=== PATIENT | female | born 1965 | race Caucasian/White ===

== ENCOUNTER 2017-07-27 14:10 | Emergency (ER) | END 2017-07-27 17:45 | disposition home or self-care (01) | DX: R51 Headache (principal); M26.621 Arthralgia of right temporomandibular joint | CPT/HCPCS: 70450; Z7502 ==

== ENCOUNTER 2017-08-27 21:59 | Emergency (ER) | payer OTHER ==
[~2017-08-27] VITALS: Ht 160 cm; Wt 56.5 kg
[~2017-08-27 21:59] MED LIST: ASPI325T32 PO; ATOR40TA68 PO; IBUP400T22 PO; LISI-523 PO
[2017-08-27 22:14] VITALS: Ht 160 cm; Wt 56.5 kg
--- NOTE | 2017-08-28 00:08 | ERD ---
ER Documentation Chief Complaint Chief Complaint she tripped and fell, lac on left side of head, dizziness. HPI The patient is a 52-year-old female, presenting to the ER because of a mechanical fall around 9:30 PM, sustained a small left parietal laceration. She complains of dizziness, head pain, denies goopy, near syncope, neck pain, chest pain, abdominal pain. He does not smoke nor drink Past medical history: Hypertension, dyslipidemia past Surgical history: 2 ROS All systems reviewed and are negative except as per history of present illness. Medications Home Meds Active Scripts Ibuprofen* (Motrin*) 400 Mg Tab, 400 MG PO Q6, #20 TAB Prov:KRISTIE JACK PA-C 07/27/17 Lisinopril* (Zestril*) 5 Mg Tablet, 5 MG PO DAILY, #30 TAB Prov:RON FELTON 06/10/16 Atorvastatin* (Atorvastatin*) 40 Mg Tablet, 40 MG PO HS for 30 Days, TAB Prov:RON FELTON 06/10/16 Aspirin (Aspir-Maddie) 325 Mg Tablet.dr, 325 MG PO DAILY for 30 Days Prov:RON FELTON 06/10/16 Allergies Allergies: Coded Allergies: No Known Allergy (Unverified , 07/27/17) PMhx/Soc History of Surgery: Yes (c-sectionx2) Anesthesia Reaction: No Hx Neurological Disorder: No Hx Respiratory Disorders: No Hx Cardiac Disorders: No Hx Psychiatric Problems: No Hx Miscellaneous Medical Probl: No Hx Alcohol Use: No Hx Substance Use: No Hx Tobacco Use: No Smoking Status: Never smoker Physical Exam Vitals Vital Signs Date Time Temp Pulse Resp B/P Pulse Ox O2 Delivery O2 Flow Rate FiO2 08/28/17 01:12 97.6 72 20 136/83 100 Room Air 08/27/17 23:52 97.6 78 22 180/100 99 Room Air 08/27/17 22:14 97.6 83 22 188/88 97 Physical Exam Const: No acute distress. Head: Atraumatic. Mild left parietal 2 cm laceration, nonbleeding Eyes: Normal Conjunctiva. ENT: Normal External Ears, Nose and Mouth. Neck: Full range of motion. No meningismus. Resp: Clear to auscultation bilaterally. Cardio: Regular rate and rhythm. Abd: Soft, non distended, normal bowel sounds, non tender. Skin: No petechiae or rashes. Back: No midline or flank tenderness. Ext: No cyanosis, or edema. Neur: Awake and alert. No focal deficit Psych: Normal Mood and Affect. Result Diagram: 08/28/17 0005 08/28/17 0005 Results 24 hrs Laboratory Tests Test 08/28/17 00:05 White Blood Count 6.910^3/ul Red Blood Count 4.9510^6/ul Hemoglobin 16.0g/dl Hematocrit 47.1% Mean Corpuscular Volume 95.2fl Mean Corpuscular Hemoglobin 32.3pg Mean Corpuscular Hemoglobin Concent 34.0g/dl Red Cell Distribution Width 12.8% Platelet Count 93227^3/UL Mean Platelet Volume 11.7fl Neutrophils % 65.1% Lymphocytes % 23.8% Monocytes % 9.4% Eosinophils % 0.7% Basophils % 0.9% Nucleated Red Blood Cells % 0.0/100WBC Neutrophils # 4.510^3/ul Lymphocytes # 1.610^3/ul Monocytes # 0.710^3/ul Eosinophils # 0.110^3/ul Basophils # 0.110^3/ul Nucleated Red Blood Cells # 0.010^3/ul Prothrombin Time 11.5Sec Prothrombin Time Ratio 0.9 INR International Normalized Ratio 0.84 Activated Partial Thromboplast Time 31.8Sec D-Dimer 220.00ng/ml D-Dimer Comment Sodium Level 148mmol/L Potassium Level 4.0mmol/L Chloride Level 108mmol/L Carbon Dioxide Level 29mmol/L Anion Gap 15 Blood Urea Nitrogen 16mg/dl Creatinine 0.82mg/dl Glucose Level 108mg/dl Calcium Level 10.0mg/dl Troponin I < 0.012ng/ml Procedures/[place] [address] Radiology Main Line: [phone] DIAGNOSTIC IMAGING REPORT Patient: NIKUNJ CLEMONS : 1965 Age: 52 Sex: F MR #: [id number] DOS: 08/28/17 0009 Ordering MD: SIVA IBARRA MD Location: E/R Room/Bed: PROCEDURE: XR Chest. CLINICAL INDICATION: Syncope. TECHNIQUE: AP Portable chest. COMPARISON: 06/08/2016 FINDINGS: The cardiomediastinal silhouette is normal. The lungs are clear. The osseous structures are unremarkable. IMPRESSION: No acute findings. RPTAT: HIKT .Markie Cadena MD, MD Date Time Electronically viewed and signed by .Markie Cadena MD, on 08/28/2017 01:52 .T/ CC: SIVA IBARRA MD [place] [id number] Radiology Main Line: [phone] DIAGNOSTIC IMAGING REPORT Patient: NIKUNJ CLEMONS : 1965 Age: 52 Sex: F MR #: [id number] DOS: 08/28/17 0009 Ordering MD: SIVA IBARRA MD Location: E/R Room/Bed: PROCEDURE: CT Brain without contrast. CLINICAL INDICATION: Fall. Syncope.. TECHNIQUE: Serial axial computed tomographic images of the brain was performed on a CT scanner from the skull base through the vertex without contrast. Exam CTDlvol = 45 mGy and DLP = 720 mGy-cm. One of the following 3 dose reduction techniques were used: Automated exposure control; adjustment of the mA and/or kV according to patient size; or use of iterative reconstruction technique. COMPARISON: None available. FINDINGS: There is no fracture. The ventricles and sulci are normal in size and configuration. There is no midline shift. There are no focal parenchymal abnormalities. There is no acute stroke. No acute intracranial hemorrhage or abnormal extra-axial fluid collection. Visualized paranasal sinuses are clear. IMPRESSION: 1. No acute post-traumatic abnormality. RPTAT: HMVK .Siva Oliveros MD, MD Date Time Electronically viewed and signed by .Siva Oliveros MD, MD on 08/28/2017 01:52 .K/ CC: SIVA IBARRA MD EKG: Read by emergency physician Rate/Rhythm: Normal Sinus Rhythm 72 beats/min QRS, ST, T-waves: No ST elevation, no T inversion Impression: Normal EKG MEDICAL MAKING DECISION: This is a 52-year-old male, presenting with acute left parietal laceration after mechanical fall. The laceration was repaired with Dermabond without any difficulty. The differential diagnoses considered include but are not limited to central causes such as cerebellar infarct, cerebellar hemorrhage, cerebellar tumor, acoustic neuroma, peripheral causes such as benign positional vertigo, labyrinthitis, medication, Meniere's disease. Departure Diagnosis: Primary Impression: Scalp laceration Condition: Good Comments I discussed the findings with the patient. I advised the patient to follow-up with the primary physician in about 1-2 days, sooner if needed and return if any concern. Disclaimer: Inadvertent spelling and grammatical errors are likely due to EHR/ dictation software use and do not reflect on the overall quality of patient care. Also, please note that the electronic time recorded on this note does not necessarily reflect the actual time of the patient encounter. SIVA IBARRA MD Aug 28, 2017 00:08
--- NOTE | 2017-08-28 00:08 | ERD ---
ER Documentation Chief Complaint Chief Complaint she tripped and fell, lac on left side of head, dizziness. HPI The patient is a 52-year-old female, presenting to the ER because of a mechanical fall around 9:30 PM, sustained a small left parietal laceration. She complains of dizziness, head pain, denies goopy, near syncope, neck pain, chest pain, abdominal pain. He does not smoke nor drink Past medical history: Hypertension, dyslipidemia past Surgical history: 2 ROS All systems reviewed and are negative except as per history of present illness. Medications Home Meds Active Scripts Ibuprofen* (Motrin*) 400 Mg Tab, 400 MG PO Q6, #20 TAB Prov:KRISTIE JACK PA-C 07/27/17 Lisinopril* (Zestril*) 5 Mg Tablet, 5 MG PO DAILY, #30 TAB Prov:RON FELTON 06/10/16 Atorvastatin* (Atorvastatin*) 40 Mg Tablet, 40 MG PO HS for 30 Days, TAB Prov:RON FELTON 06/10/16 Aspirin (Aspir-Maddie) 325 Mg Tablet.dr, 325 MG PO DAILY for 30 Days Prov:RON FELTON 06/10/16 Allergies Allergies: Coded Allergies: No Known Allergy (Unverified , 07/27/17) PMhx/Soc History of Surgery: Yes (c-sectionx2) Anesthesia Reaction: No Hx Neurological Disorder: No Hx Respiratory Disorders: No Hx Cardiac Disorders: No Hx Psychiatric Problems: No Hx Miscellaneous Medical Probl: No Hx Alcohol Use: No Hx Substance Use: No Hx Tobacco Use: No Smoking Status: Never smoker Physical Exam Vitals Vital Signs Date Time Temp Pulse Resp B/P Pulse Ox O2 Delivery O2 Flow Rate FiO2 08/28/17 01:12 97.6 72 20 136/83 100 Room Air 08/27/17 23:52 97.6 78 22 180/100 99 Room Air 08/27/17 22:14 97.6 83 22 188/88 97 Physical Exam Const: No acute distress. Head: Atraumatic. Mild left parietal 2 cm laceration, nonbleeding Eyes: Normal Conjunctiva. ENT: Normal External Ears, Nose and Mouth. Neck: Full range of motion. No meningismus. Resp: Clear to auscultation bilaterally. Cardio: Regular rate and rhythm. Abd: Soft, non distended, normal bowel sounds, non tender. Skin: No petechiae or rashes. Back: No midline or flank tenderness. Ext: No cyanosis, or edema. Neur: Awake and alert. No focal deficit Psych: Normal Mood and Affect. Result Diagram: 08/28/17 0005 08/28/17 0005 Results 24 hrs Laboratory Tests Test 08/28/17 00:05 White Blood Count 6.910^3/ul Red Blood Count 4.9510^6/ul Hemoglobin 16.0g/dl Hematocrit 47.1% Mean Corpuscular Volume 95.2fl Mean Corpuscular Hemoglobin 32.3pg Mean Corpuscular Hemoglobin Concent 34.0g/dl Red Cell Distribution Width 12.8% Platelet Count 85700^3/UL Mean Platelet Volume 11.7fl Neutrophils % 65.1% Lymphocytes % 23.8% Monocytes % 9.4% Eosinophils % 0.7% Basophils % 0.9% Nucleated Red Blood Cells % 0.0/100WBC Neutrophils # 4.510^3/ul Lymphocytes # 1.610^3/ul Monocytes # 0.710^3/ul Eosinophils # 0.110^3/ul Basophils # 0.110^3/ul Nucleated Red Blood Cells # 0.010^3/ul Prothrombin Time 11.5Sec Prothrombin Time Ratio 0.9 INR International Normalized Ratio 0.84 Activated Partial Thromboplast Time 31.8Sec D-Dimer 220.00ng/ml D-Dimer Comment Sodium Level 148mmol/L Potassium Level 4.0mmol/L Chloride Level 108mmol/L Carbon Dioxide Level 29mmol/L Anion Gap 15 Blood Urea Nitrogen 16mg/dl Creatinine 0.82mg/dl Glucose Level 108mg/dl Calcium Level 10.0mg/dl Troponin I < 0.012ng/ml Procedures/[place] [address] Radiology Main Line: [phone] DIAGNOSTIC IMAGING REPORT Patient: NIKUNJ CLEMONS : 1965 Age: 52 Sex: F MR #: [id number] DOS: 08/28/17 0009 Ordering MD: SIVA IBARRA MD Location: E/R Room/Bed: PROCEDURE: XR Chest. CLINICAL INDICATION: Syncope. TECHNIQUE: AP Portable chest. COMPARISON: 06/08/2016 FINDINGS: The cardiomediastinal silhouette is normal. The lungs are clear. The osseous structures are unremarkable. IMPRESSION: No acute findings. RPTAT: HIKT .Markie Cadena MD, MD Date Time Electronically viewed and signed by .Markie Cadena MD, on 08/28/2017 01:52 .T/ CC: SIVA IBARRA MD [place] [address] Radiology Main Line: [phone] DIAGNOSTIC IMAGING REPORT Patient: NIKUNJ CLEMONS : 1965 Age: 52 Sex: F MR #: [id number] DOS: 08/28/17 0009 Ordering MD: SIVA IBARRA MD Location: E/R Room/Bed: PROCEDURE: CT Brain without contrast. CLINICAL INDICATION: Fall. Syncope.. TECHNIQUE: Serial axial computed tomographic images of the brain was performed on a CT scanner from the skull base through the vertex without contrast. Exam CTDlvol = 45 mGy and DLP = 720 mGy-cm. One of the following 3 dose reduction techniques were used: Automated exposure control; adjustment of the mA and/or kV according to patient size; or use of iterative reconstruction technique. COMPARISON: None available. FINDINGS: There is no fracture. The ventricles and sulci are normal in size and configuration. There is no midline shift. There are no focal parenchymal abnormalities. There is no acute stroke. No acute intracranial hemorrhage or abnormal extra-axial fluid collection. Visualized paranasal sinuses are clear. IMPRESSION: 1. No acute post-traumatic abnormality. RPTAT: HMVK .Siva Oliveros MD, MD Date Time Electronically viewed and signed by .Siva Oliveros MD, MD on 08/28/2017 01:52 .K/ CC: SIVA IBARRA MD EKG: Read by emergency physician Rate/Rhythm: Normal Sinus Rhythm 72 beats/min QRS, ST, T-waves: No ST elevation, no T inversion Impression: Normal EKG MEDICAL MAKING DECISION: This is a 52-year-old male, presenting with acute left parietal laceration after mechanical fall. The laceration was repaired with Dermabond without any difficulty. The differential diagnoses considered include but are not limited to central causes such as cerebellar infarct, cerebellar hemorrhage, cerebellar tumor, acoustic neuroma, peripheral causes such as benign positional vertigo, labyrinthitis, medication, Meniere's disease. Departure Diagnosis: Primary Impression: Scalp laceration Condition: Good Comments I discussed the findings with the patient. I advised the patient to follow-up with the primary physician in about 1-2 days, sooner if needed and return if any concern. Disclaimer: Inadvertent spelling and grammatical errors are likely due to EHR/ dictation software use and do not reflect on the overall quality of patient care. Also, please note that the electronic time recorded on this note does not necessarily reflect the actual time of the patient encounter. SIVA IBARRA MD Aug 28, 2017 00:08
--- NOTE | 2017-08-28 00:08 | ERD ---
ER Documentation Chief Complaint Chief Complaint she tripped and fell, lac on left side of head, dizziness. HPI The patient is a 52-year-old female, presenting to the ER because of a mechanical fall around 9:30 PM, sustained a small left parietal laceration. She complains of dizziness, head pain, denies goopy, near syncope, neck pain, chest pain, abdominal pain. He does not smoke nor drink Past medical history: Hypertension, dyslipidemia past Surgical history: 2 ROS All systems reviewed and are negative except as per history of present illness. Medications Home Meds Active Scripts Ibuprofen* (Motrin*) 400 Mg Tab, 400 MG PO Q6, #20 TAB Prov:KRISTIE JACK PA-C 07/27/17 Lisinopril* (Zestril*) 5 Mg Tablet, 5 MG PO DAILY, #30 TAB Prov:RON FELTON 06/10/16 Atorvastatin* (Atorvastatin*) 40 Mg Tablet, 40 MG PO HS for 30 Days, TAB Prov:RON FELTON 06/10/16 Aspirin (Aspir-Maddie) 325 Mg Tablet.dr, 325 MG PO DAILY for 30 Days Prov:RON FELTON 06/10/16 Allergies Allergies: Coded Allergies: No Known Allergy (Unverified , 07/27/17) PMhx/Soc History of Surgery: Yes (c-sectionx2) Anesthesia Reaction: No Hx Neurological Disorder: No Hx Respiratory Disorders: No Hx Cardiac Disorders: No Hx Psychiatric Problems: No Hx Miscellaneous Medical Probl: No Hx Alcohol Use: No Hx Substance Use: No Hx Tobacco Use: No Smoking Status: Never smoker Physical Exam Vitals Vital Signs Date Time Temp Pulse Resp B/P Pulse Ox O2 Delivery O2 Flow Rate FiO2 08/28/17 01:12 97.6 72 20 136/83 100 Room Air 08/27/17 23:52 97.6 78 22 180/100 99 Room Air 08/27/17 22:14 97.6 83 22 188/88 97 Physical Exam Const: No acute distress. Head: Atraumatic. Mild left parietal 2 cm laceration, nonbleeding Eyes: Normal Conjunctiva. ENT: Normal External Ears, Nose and Mouth. Neck: Full range of motion. No meningismus. Resp: Clear to auscultation bilaterally. Cardio: Regular rate and rhythm. Abd: Soft, non distended, normal bowel sounds, non tender. Skin: No petechiae or rashes. Back: No midline or flank tenderness. Ext: No cyanosis, or edema. Neur: Awake and alert. No focal deficit Psych: Normal Mood and Affect. Result Diagram: 08/28/17 0005 08/28/17 0005 Results 24 hrs Laboratory Tests Test 08/28/17 00:05 White Blood Count 6.910^3/ul Red Blood Count 4.9510^6/ul Hemoglobin 16.0g/dl Hematocrit 47.1% Mean Corpuscular Volume 95.2fl Mean Corpuscular Hemoglobin 32.3pg Mean Corpuscular Hemoglobin Concent 34.0g/dl Red Cell Distribution Width 12.8% Platelet Count 75300^3/UL Mean Platelet Volume 11.7fl Neutrophils % 65.1% Lymphocytes % 23.8% Monocytes % 9.4% Eosinophils % 0.7% Basophils % 0.9% Nucleated Red Blood Cells % 0.0/100WBC Neutrophils # 4.510^3/ul Lymphocytes # 1.610^3/ul Monocytes # 0.710^3/ul Eosinophils # 0.110^3/ul Basophils # 0.110^3/ul Nucleated Red Blood Cells # 0.010^3/ul Prothrombin Time 11.5Sec Prothrombin Time Ratio 0.9 INR International Normalized Ratio 0.84 Activated Partial Thromboplast Time 31.8Sec D-Dimer 220.00ng/ml D-Dimer Comment Sodium Level 148mmol/L Potassium Level 4.0mmol/L Chloride Level 108mmol/L Carbon Dioxide Level 29mmol/L Anion Gap 15 Blood Urea Nitrogen 16mg/dl Creatinine 0.82mg/dl Glucose Level 108mg/dl Calcium Level 10.0mg/dl Troponin I < 0.012ng/ml Procedures/[place] [address] Radiology Main Line: [phone] DIAGNOSTIC IMAGING REPORT Patient: NIKUNJ CLEMONS : 1965 Age: 52 Sex: F MR #: [id number] DOS: 08/28/17 0009 Ordering MD: SIVA IBARRA MD Location: E/R Room/Bed: PROCEDURE: XR Chest. CLINICAL INDICATION: Syncope. TECHNIQUE: AP Portable chest. COMPARISON: 06/08/2016 FINDINGS: The cardiomediastinal silhouette is normal. The lungs are clear. The osseous structures are unremarkable. IMPRESSION: No acute findings. RPTAT: HIKT .Markie Cadena MD, MD Date Time Electronically viewed and signed by .Markie Cadena MD, on 08/28/2017 01:52 .T/ CC: SIVA IBARRA MD [place] [address] Radiology Main Line: [phone] DIAGNOSTIC IMAGING REPORT Patient: NIKUNJ CLEMOSN : 1965 Age: 52 Sex: F MR #: [id number] DOS: 08/28/17 0009 Ordering MD: SIVA IBARRA MD Location: E/R Room/Bed: PROCEDURE: CT Brain without contrast. CLINICAL INDICATION: Fall. Syncope.. TECHNIQUE: Serial axial computed tomographic images of the brain was performed on a CT scanner from the skull base through the vertex without contrast. Exam CTDlvol = 45 mGy and DLP = 720 mGy-cm. One of the following 3 dose reduction techniques were used: Automated exposure control; adjustment of the mA and/or kV according to patient size; or use of iterative reconstruction technique. COMPARISON: None available. FINDINGS: There is no fracture. The ventricles and sulci are normal in size and configuration. There is no midline shift. There are no focal parenchymal abnormalities. There is no acute stroke. No acute intracranial hemorrhage or abnormal extra-axial fluid collection. Visualized paranasal sinuses are clear. IMPRESSION: 1. No acute post-traumatic abnormality. RPTAT: HMVK .Siva Oliveros MD, MD Date Time Electronically viewed and signed by .Siva Oliveros MD, MD on 08/28/2017 01:52 .K/ CC: SIVA IBARRA MD EKG: Read by emergency physician Rate/Rhythm: Normal Sinus Rhythm 72 beats/min QRS, ST, T-waves: No ST elevation, no T inversion Impression: Normal EKG MEDICAL MAKING DECISION: This is a 52-year-old male, presenting with acute left parietal laceration after mechanical fall. The laceration was repaired with Dermabond without any difficulty. The differential diagnoses considered include but are not limited to central causes such as cerebellar infarct, cerebellar hemorrhage, cerebellar tumor, acoustic neuroma, peripheral causes such as benign positional vertigo, labyrinthitis, medication, Meniere's disease. Departure Diagnosis: Primary Impression: Scalp laceration Condition: Good Comments I discussed the findings with the patient. I advised the patient to follow-up with the primary physician in about 1-2 days, sooner if needed and return if any concern. Disclaimer: Inadvertent spelling and grammatical errors are likely due to EHR/ dictation software use and do not reflect on the overall quality of patient care. Also, please note that the electronic time recorded on this note does not necessarily reflect the actual time of the patient encounter. SIVA IBARRA MD Aug 28, 2017 00:08
[2017-08-28 01:12] VITALS: BP 136/83; PULSE 72; RESP 20; TEMP 97.6
--- NOTE | 2017-08-28 01:52 | RADRPT ---
PROCEDURE: CT Brain without contrast. CLINICAL INDICATION: Fall. Syncope.. TECHNIQUE: Serial axial computed tomographic images of the brain was performed on a CT scanner fro m the skull base through the vertex without contrast. Exam CTDlvol = 45 mGy and DLP = 720 mGy-cm. One of the following 3 dose reduction techniques were used: Automated exposure control; adjustment of the mA and/or kV according to patient size; or use of iterative reconstruction technique. COMPARISON: None available. FINDINGS: There is no fracture. The ventricles and sulci are normal in size and configuration. There is no m idline shift. There are no focal parenchymal abnormalities. There is no acute stroke. No acute in tracranial hemorrhage or abnormal extra-axial fluid collection. Visualized paranasal sinuses are c lear. IMPRESSION: 1. No acute post-traumatic abnormality. RPTAT: HMVK .Siva Oliveros MD, Date Time Electronically viewed and signed by .Siva Oliveros MD, on 08/28/2017 01:52 .K/
--- NOTE | 2017-08-28 01:52 | RADRPT ---
PROCEDURE: XR Chest. CLINICAL INDICATION: Syncope. TECHNIQUE: AP Portable chest. COMPARISON: 06/08/2016 FINDINGS: The cardiomediastinal silhouette is normal. The lungs are clear. The osseous structures are unrema rkable. IMPRESSION: No acute findings. RPTAT: HIKT .Markie Cadena MD, MD Date Time Electronically viewed and signed by .Markie Cadena MD, MD on 08/28/2017 01:52 .T/
== END 2017-08-28 02:44 | disposition home or self-care (01) ==
LOC: E/R 21:59
DX: S01.01XA Laceration without foreign body of scalp, initial encounter (principal); I10 Essential (primary) hypertension; R07.9 Chest pain, unspecified; W01.0XXA Fall on same level from slipping, tripping and stumbling without subsequent striking against object, initial encounter; Y92.9 Unspecified place or not applicable; Z79.82 Long term (current) use of aspirin
CPT/HCPCS: 12001; 36415; 70450; 71010; 80048; 84484; 85025; 85378; 85610; 85730; 93005; Z7502

== ENCOUNTER 2018-04-13 14:54 | Emergency (ER) | END 2018-04-13 18:06 | disposition home or self-care (01) ==

== ENCOUNTER 2018-05-07 10:31 | Emergency (ER) | END 2018-05-07 13:22 | disposition home or self-care (01) ==

== ENCOUNTER 2018-07-03 20:22 | Emergency (ER) | END 2018-07-03 23:57 | disposition home or self-care (01) ==

== ENCOUNTER 2018-07-27 04:25 | Emergency (ER) | END 2018-07-27 05:09 | disposition home or self-care (01) ==

== ENCOUNTER 2018-10-03 02:29 | Emergency (ER) | END 2018-10-03 03:32 | disposition home or self-care (01) ==

== ENCOUNTER 2019-01-19 11:58 | Emergency (ER) | payer OTHER ==
[~2019-01-19] VITALS: Ht 167.6 cm; Wt 61.6 kg
[~2019-01-19 11:58] MED LIST changes: +ACET500C5 PO; +AMOX500C2 PO; +BEN50 PO; +HYDR-4011 PO; +HYDR25TA6 PO; +IBUP-1561 PO; -IBUP400T22 PO; +IBUP800T48 PO; +LISI10TA2 PO; +LORA-441 PO
[2019-01-19 12:01] VITALS: Ht 167.6 cm; Wt 61.6 kg
--- NOTE | 2019-01-19 13:31 | ERD ---
ER Documentation Chief Complaint Chief Complaint Complains of dizziness, with a headache HPI 53-year-old woman complains of paresthesias to the face and tongue similar to prior episodes and states her blood pressure was elevated at home. Patient has had multiple similar episodes in the past and has anxiety but denies anxiolytic use. She denies chest pain or shortness of breath, no cough, no fevers or chills, no calf or leg swelling, no slurred speech, no weakness in her arms or legs, no headache or blurry vision. ROS All systems reviewed and are negative except as per history of present illness. Medications Home Meds Active Scripts Lorazepam* (Ativan*) 0.5 Mg Tablet, 0.5 MG PO Q8H PRN for ANXIETY, #10 TAB Prov:JULISA RODAS MD 01/19/19 Reported Medications Atorvastatin Calcium* (Atorvastatin Calcium*) 20 Mg Tablet, 20 MG PO QHS, #30 TAB 01/19/19 Lisinopril* (Lisinopril*) 5 Mg Tablet, 5 MG PO DAILY, #30 TAB 01/19/19 Aspirin* (Aspirin* EC) 81 Mg Tablet.dr, 81 MG PO DAILY, TAB 01/19/19 Discontinued Scripts Hydrocodone/Acetaminophen ([place] 5-325 Tablet) 1 Each Tablet, 1 TAB PO Q6H PRN for SEVERE PAIN LEVEL 7-10, #10 TAB Prov:JONI NASSAR NP 10/03/18 Ibuprofen* (Motrin*) 800 Mg Tab, 800 MG PO Q6H PRN for PAIN AND OR ELEVATED TEMP, #30 TAB Prov:JONI NASSAR NP 10/03/18 Amoxicillin* (Amoxicillin*) 500 Mg Cap, 500 MG PO TID for 10 Days, CAP Prov:JONI NASSAR NP 10/03/18 Diphenhydramine Hcl* (Benadryl*) 50 Mg Cap, 50 MG PO Q6H PRN for AGITATION/ANXIETY, #30 CAP Prov:JONI NASSAR NP 07/27/18 Lorazepam* (Ativan*) 0.5 Mg Tablet, 0.5 MG PO Q8 for anxiety, #10 TAB Prov:LUISADL 07/03/18 Acetaminophen* (Tylophen*) 500 Mg Capsule, 1 CAP PO Q6H PRN for PAIN AND OR ELEVATED TEMP, #20 CAP Prov:FRANKLINKAELA Sandra PA-C 05/07/18 Hydrochlorothiazide* (Hydrochlorothiazide*) 25 Mg Tab, 25 MG PO DAILY, #30 TAB Prov:FRANKLINKAELA Sandra PA-C 05/07/18 Lisinopril* (Lisinopril*) 10 Mg Tablet, 10 MG PO DAILY, #30 TAB Prov:REIDKAELA PA-C 05/07/18 Ibuprofen* (Motrin*) 400 Mg Tab, 400 MG PO Q6, #20 TAB Prov:GUEROKRISTIEC 07/27/17 Lisinopril* (Zestril*) 5 Mg Tablet, 5 MG PO DAILY, #30 TAB Prov:RON FELTON 06/10/16 Atorvastatin* (Atorvastatin*) 40 Mg Tablet, 40 MG PO HS for 30 Days, TAB Prov:RON FELTON 06/10/16 Aspirin (Aspir-Maddie) 325 Mg Tablet.dr, 325 MG PO DAILY for 30 Days Prov:RON FELTON 06/10/16 Allergies Allergies: Coded Allergies: No Known Allergy (Unverified , 01/19/19) PMhx/Soc Hypertension, hypercholesterolemia, anxiety with recurrent paresthesias History of Surgery: Yes (c-sectionx2) Anesthesia Reaction: No Hx Neurological Disorder: No Hx Respiratory Disorders: No Hx Cardiac Disorders: Yes (htn, cva 2 yrs ago, HYPERLIPIDEMIA) Hx Psychiatric Problems: No Hx Miscellaneous Medical Probl: No Hx Alcohol Use: No Hx Substance Use: No Hx Tobacco Use: No FmHx Family History: No diabetes Physical Exam Vitals Vital Signs Date Temp Pulse Resp B/P (MAP) Pulse Ox O2 O2 Flow FiO2 Time Delivery Rate 01/19/19 81 28 160/79 100 Room Air 14:37 (106) 01/19/19 98.6 97 20 185/91 98 12:01 (122) Physical Exam GENERAL: Well-developed, well-nourished, appears anxious, afebrile HEENT: Moist mucous membranes, pink conjunctiva, no cervical spine tenderness or step-off deformities, no goiter, no jaundice or icterus, extraocular movements intact without pain. No submandibular induration, and no pharyngeal erythema NEURO: Alert and oriented 3, cranial nerves II through XII intact bilaterally, pupils equal round reactive to light, no focal deficits or facial asymmetry, sensation intact distally Strength 5/5 in upper and lower extremities bilaterally CARDIAC: Tachycardic and regular, no murmurs rubs or gallops LUNGS: Clear bilaterally no wheezing crackles or stridor ABDOMEN: Soft nontender, no guarding, no rigidity, no rebound, no psoas sign no obturator sign. Normoactive bowel sounds SKIN: Warm and dry to touch, no abrasions, contusions, or hematomas, no lacerations, no ecchymosis, no target lesions, and without ulcers EXTREMITIES: No clubbing cyanosis or edema, calves are bilaterally symmetrical, no Homans sign, no popliteal cord sign. Distal pulses equal and bilateral PSYCH: Anxious appearing Result Diagram: 01/19/19 1412 01/19/19 1412 Results 24 hrs Laboratory Tests Test 01/19/19 14:12 White Blood Count 8.2 10^3/ul Red Blood Count 4.53 10^6/ul Hemoglobin 14.5 g/dl Hematocrit 43.2 % Mean Corpuscular Volume 95.4 fl Mean Corpuscular Hemoglobin 32.0 pg Mean Corpuscular Hemoglobin Concent 33.6 g/dl Red Cell Distribution Width 12.3 % Platelet Count 175 10^3/UL Mean Platelet Volume 11.5 fl Immature Granulocytes % 0.400 % Neutrophils % 81.2 % Lymphocytes % 12.6 % Monocytes % 5.1 % Eosinophils % 0.1 % Basophils % 0.6 % Nucleated Red Blood Cells % 0.0 /100WBC Immature Granulocytes # 0.030 10^3/ul Neutrophils # 6.7 10^3/ul Lymphocytes # 1.0 10^3/ul Monocytes # 0.4 10^3/ul Eosinophils # 0.0 10^3/ul Basophils # 0.1 10^3/ul Nucleated Red Blood Cells # 0.0 10^3/ul Urine Color YELLOW Urine Clarity CLEAR Urine pH 8.0 Urine Specific [place] 1.002 Urine Ketones NEGATIVE mg/dL Urine Nitrite NEGATIVE mg/dL Urine Bilirubin NEGATIVE mg/dL Urine Urobilinogen NEGATIVE mg/dL Urine Leukocyte Esterase NEGATIVE [place]/ul Urine Hemoglobin NEGATIVE mg/dL Urine Glucose NEGATIVE mg/dL Urine Total Protein NEGATIVE mg/dl Sodium Level 147 mmol/L Potassium Level 4.7 mmol/L Chloride Level 104 mmol/L Carbon Dioxide Level 29 mmol/L Anion Gap 14 Blood Urea Nitrogen 14 mg/dl Creatinine 0.68 mg/dl Est Glomerular Filtrat Rate mL/min > 60 mL/min Glucose Level 108 mg/dl Calcium Level 10.4 mg/dl Total Bilirubin 0.8 mg/dl Direct Bilirubin 0.00 mg/dl Indirect Bilirubin 0.8 mg/dl Aspartate Amino Transf (AST/SGOT) 46 IU/L Alanine Aminotransferase (ALT/SGPT) 44 IU/L Alkaline Phosphatase 91 IU/L Troponin I < 0.012 ng/ml Total Protein 8.2 g/dl Albumin 4.9 g/dl Globulin 3.30 g/dl Albumin/Globulin Ratio 1.48 Lipase 98 U/L Current Medications Medications Dose Sig/Yumiko Start Time Status Last (Trade) Ordered Route PRN Stop Time Admin Dose Reason Admin Alprazolam 1 mg ONCE ONCE 01/19/19 DC 01/19/19 (Xanax) PO 14:00 14:33 01/19/19 14:01 Sodium 1,000 ml @ Q1H ONCE 01/19/19 DC 01/19/19 Chloride 1,000 mls/hr IV 14:00 14:33 01/19/19 14:59 Procedures/MDM IV line was established patient was placed on youth nutritional monitor rhythm strip revealed a narrow complex tachycardia at 110 bpm with upright P and T waves. Patient was afebrile EKG performed, read by me revealed a sinus tachycardia at 110 bpm, normal axis, narrow QRS complex, no concerning ST elevations or depressions noted I administered 1 L normal saline IV and alprazolam 1 mg p.o. for her symptoms. CBC and electrolytes were unremarkable, liver function tests normal, troponin negative, urinalysis negative for infection Patient's hypertension improved and she no longer felt anxious. Neurologic exam was repeated by me prior to discharge and remained normal. Differential diagnoses considered, included but not limited to acute coronary s yndrome, pulmonary embolism, aortic dissection, abdominal aortic aneurysm, sepsis, stroke, meningitis, encephalitis, pneumonia, appendicitis, cholecystitis, bowel obstruction, pyelonephritis, nephrolithiasis, cystitis, as well as metabolic, hematologic, and electrolyte abnormalities. As well as absc ess, cellulitis, fractures, and dislocations. Patient feels much better at this time, and vital signs are normal, symptoms have improved. I did give strict instructions to return to the ED if symptoms continue or worsen, patient will otherwise follow-up with primary care physician. Patient understood instructions and agreed to plan. Disclaimer: Inadvertent spelling and grammatical errors are likely due to EHR/dictation software use and do not reflect on the overall quality of patient care. Also, please note that the electronic time recorded on this note does not necessarily reflect the actual time of the patient encounter. Departure Diagnosis: Primary Impression: Paresthesias Additional Impression: Hypertension Hypertension type: essential hypertension Qualified Codes: I10 - Essential (primary) hypertension Condition: JULISA Khan MD Jan 19, 2019 13:31
[2019-01-19] MEDS ORDERED: ALPRAZOLAM 1 MG TAB PO ONE (14:00)
[2019-01-19] MEDS ORDERED: SOD CHLORIDE 0.9% 1,000 ML IV ONE (14:00)
[2019-01-19] MEDS ORDERED: ASPI-817 PO (14:16)
[2019-01-19] MEDS ORDERED: LISI-313 PO (14:16)
[2019-01-19] MEDS ORDERED: ATOR20TA38 PO (14:17)
[2019-01-19] MEDS ORDERED: LORA-441 PO (15:58)
[2019-01-19 16:45] VITALS: BP 108/71; PULSE 72; RESP 16
== END 2019-01-19 16:46 | disposition home or self-care (01) ==
LOC: E/R 11:58
DX: I10 Essential (primary) hypertension (principal); Z79.82 Long term (current) use of aspirin; Z86.73 Personal history of transient ischemic attack (TIA), and cerebral infarction without residual deficits
CPT/HCPCS: 36415; 80053; 81003; 83690; 84484; 85025; 93005; J7030; Z7502; Z7610

== ENCOUNTER 2019-02-14 13:45 | Emergency (ER) | payer OTHER ==
[~2019-02-14] VITALS: Ht 149.9 cm; Wt 55.9 kg
[~2019-02-14 13:45] MED LIST changes: -ACET500C5 PO; -AMOX500C2 PO; +ASPI-817 PO; -ASPI325T32 PO; +ATOR20TA38 PO; -ATOR40TA68 PO; -BEN50 PO; -HYDR-4011 PO; -HYDR25TA6 PO; -IBUP-1561 PO; -IBUP800T48 PO; +LISI-313 PO; -LISI-523 PO; -LISI10TA2 PO
[2019-02-14 13:51] VITALS: Ht 149.9 cm; Wt 55.9 kg
[2019-02-14] MEDS ORDERED: ACETAMINOPHEN 500 MG TAB PO STA (14:45)
[2019-02-14] MEDS ORDERED: ACET500C5 PO (17:15)
--- NOTE | 2019-02-14 17:20 | ERD ---
ER Documentation Chief Complaint Chief Complaint pt is bib family with c/o slip and fall yesterday in shower, head pain HPI This 53-year-old female slipped and fell in the shower yesterday preceded the right side of her head and face. She has loss of consciousness, vomiting. Today she complains of blurry vision without visual field deficits. She sees stars but no floaters. Patient has no comments of neck pain, deficits, vomiting. She denies fevers, chest pain, shortness of breath, additional symptoms. ROS All systems reviewed and are negative except as per history of present illness. Medications Home Meds Active Scripts Acetaminophen* (Tylophen*) 500 Mg Capsule, 1 CAP PO Q6H PRN for PAIN AND OR ELEVATED TEMP, #15 CAP Prov:MARIA DOLORES DUNAWAY MD 02/14/19 Lorazepam* (Ativan*) 0.5 Mg Tablet, 0.5 MG PO Q8H PRN for ANXIETY, #10 TAB Prov:JULISA RODAS MD 01/19/19 Reported Medications Atorvastatin Calcium* (Atorvastatin Calcium*) 20 Mg Tablet, 20 MG PO QHS, #30 TAB 01/19/19 Lisinopril* (Lisinopril*) 5 Mg Tablet, 5 MG PO DAILY, #30 TAB 01/19/19 Aspirin* (Aspirin* EC) 81 Mg Tablet.dr, 81 MG PO DAILY, TAB 01/19/19 Allergies Allergies: Coded Allergies: No Known Allergy (Unverified , 01/19/19) PMhx/Soc History of Surgery: Yes (c-sectionx2) Anesthesia Reaction: No Hx Neurological Disorder: No Hx Respiratory Disorders: No Hx Cardiac Disorders: Yes (htn, cva 2 yrs ago, HYPERLIPIDEMIA) Hx Psychiatric Problems: No (anxiety and depression) Hx Miscellaneous Medical Probl: No Hx Alcohol Use: No Hx Substance Use: No Hx Tobacco Use: No Smoking Status: Never smoker FmHx Family History: No diabetes, No coronary disease, No other Physical Exam Vitals Vital Signs Date Temp Pulse Resp B/P (MAP) Pulse Ox O2 O2 Flow FiO2 Time Delivery Rate 02/14/19 98.7 82 16 183/94 96 13:51 (123) Physical Exam Const: No acute distress Head: Atraumatic. Tenderness on right parietal area and right zygoma infraorbital area. No ecchymosis or significant swelling. Eyes: Normal Conjunctiva ENT: Normal External Ears, Nose and Mouth. No hemotympanum. Neck: Full range of motion. No meningismus. Neck nontender Resp: Clear to auscultation bilaterally Cardio: Regular rate and rhythm, no murmurs Abd: Soft, non tender, non distended. Normal bowel sounds Skin: No petechiae or rashes Back: No midline or flank tenderness Ext: No cyanosis, or edema Neur: Awake and alert. Normal gait. No appreciable focal neurologic deficits. Psych: Normal Mood and Affect Results 24 hrs Laboratory Tests Test 02/14/19 15:02 POC Beta HCG, Qualitative NEGATIVE Current Medications Medications Dose Sig/Yumiko Start Time Status Last (Trade) Ordered Route PRN Stop Time Admin Dose Reason Admin 500 mg ONCE STAT 02/14/19 DC 02/14/19 Acetaminophen PO 14:45 14:59 (Tylenol 02/14/19 14:47 Tab) Procedures/MDM CT brain and facial bones are as normal by the radiologist. Patient presents with a head injury yesterday at slipping in the shower. She has no signs or symptoms to suggest internal bleeding, fracture, neurologic deficit, just concerning signs or symptoms. Patient does not describe symptoms of retinal detachment. She may have a mild concussion. She will discharged home with Tylenol, return precautions and primary care follow-up. The patient was stable with no new complaints during the ER course. Clinically, there is no current evidence to suggest meningitis, sepsis, acute abdomen, pneumonia, stroke, acute coronary syndrome, pulmonary embolism, aortic dissection or any other emergent condition appearing to require further evaluation or hospitalization. Patient counseled regarding my diagnostic impression and care plan. Prior to discharge all questions answered. Pt agrees with treatment plan and understands strict return precautions. Pt is instructed to follow up with primary care provider within 24-48 hours. Precautionary instructions provided including instructions to return to the ER if not improving or for any worsening or changing symptoms or concerns. Departure Diagnosis: Primary Impression: Head injuries Encounter type: initial encounter Qualified Codes: S09.90XA - Unspecified injury of head, initial encounter Additional Impression: Hypertension Hypertension type: unspecified Qualified Codes: I10 - Essential (primary) hypertension Condition: Stable Patient Instructions: HEAD INJURY, No Wake-Up (Adult) Additional Instructions: Examines normal hoy. Cheque otro vez con [place] doctor primario en el proximo [place] or regresa para mas o nueva simptomas. MARIA DOLORES DUNAWAY MD Feb 14, 2019 17:20
[2019-02-14 17:48] VITALS: BP 142/74; PULSE 74; RESP 16
== END 2019-02-14 17:49 | disposition home or self-care (01) ==
LOC: FTE 13:45
DX: S09.90XA Unspecified injury of head, initial encounter (principal); I10 Essential (primary) hypertension; R51 Headache; W18.2XXA Fall in (into) shower or empty bathtub, initial encounter; Y92.9 Unspecified place or not applicable; Z79.82 Long term (current) use of aspirin; Z86.73 Personal history of transient ischemic attack (TIA), and cerebral infarction without residual deficits
CPT/HCPCS: 70450; 70486; 81025; Z7502; Z7610

== ENCOUNTER 2019-06-16 17:30 | Emergency (ER) | payer OTHER ==
[~2019-06-16] VITALS: Ht 152.4 cm; Wt 55.5 kg
[~2019-06-16 17:30] MED LIST changes: +ACET500C5 PO; +CAPS42.52 TP; +HYDR-4011 PO; +LORA1TAB PO
[2019-06-16 17:56] VITALS: BP 173/84; PULSE 87; RESP 18; Ht 152.4 cm; Wt 55.5 kg
== END 2019-06-16 18:12 | disposition home or self-care (01) ==
LOC: E/R 17:30
DX: M79.2 Neuralgia and neuritis, unspecified (principal); I10 Essential (primary) hypertension; Z79.82 Long term (current) use of aspirin; Z86.73 Personal history of transient ischemic attack (TIA), and cerebral infarction without residual deficits
CPT/HCPCS: 99283

== ENCOUNTER 2019-08-23 15:11 | Emergency (ER) | payer OTHER ==
[~2019-08-23] VITALS: Ht 160 cm; Wt 54.7 kg
[~2019-08-23 15:11] MED LIST changes: +CLON0.5T14 ORAL; +ESCI5TAB10 ORAL; +NITR0.4T32 SUBLINGUAL; +QUET25TA33 ORAL
[2019-08-23 15:24] VITALS: Ht 160 cm; Wt 54.7 kg
[2019-08-23] MEDS ORDERED: METOCLOPRAMIDE 10 MG INJ IV STA (15:39)
[2019-08-23] MEDS ORDERED: DIPHENHYDRAMINE 50 MG INJ IV STA (15:39)
[2019-08-23] MEDS ORDERED: SOD CHLORIDE 0.9% 1,000 ML IV STA (15:39)
[2019-08-23 17:16] VITALS: BP 122/71; PULSE 84; RESP 14
== END 2019-08-23 17:40 | disposition home or self-care (01) ==
LOC: E/R 15:11
DX: I10 Essential (primary) hypertension (principal); F41.1 Generalized anxiety disorder; R20.2 Paresthesia of skin; Z79.82 Long term (current) use of aspirin; Z86.73 Personal history of transient ischemic attack (TIA), and cerebral infarction without residual deficits
CPT/HCPCS: 36415; 70450; 80048; 81001; 82962; 84484; 85025; 93005; 96374; 96375; J1200; J2765; J7030; Z7502; 81003